=== PATIENT | female | born 1955 | race Caucasian/White ===

== ENCOUNTER 2016-07-04 20:14 | Inpatient (IN) ==
[2016-07-04] MEDS ORDERED: Ondansetron ODT 4 MG TAB.RAPDIS SL ONE (21:21)
--- NOTE | 2016-07-04 21:24 | Emergency Department Note ---
Disposition Clinical Impression: Abdominal pain Qualifiers: Abdominal location: unspecified location Qualified Code(s): R10.9 - Unspecified abdominal pain Nausea & vomiting Qualifiers: Vomiting type: unspecified Vomiting Intractability: unspecified Qualified Code( s): R11.2 - Nausea with vomiting, unspecified Disposition: Still a Patient Condition: Fair Referrals: NO,PCP [Primary Care Provider] - Forms: Work/School Release, ED Satisfaction Letter Abdominal Pain HPI - General Chief Complaint: ED Abdominal Pain Stated Complaint: vomiting/abdominal pain x2 days Time Seen by Provider: 07/04/16 21:17 Source: patient Mode of arrival: ambulatory Limitations: no limitations Nursing Notes Reviewed: Yes Vital Signs Reviewed: Yes - History of Present Illness HPI Narrative: 61-year-old female who's had a three-day history of nausea vomiting some abdominal pain. States nobody else is sick in the family. Denies fever. States she cannot keep anything down. Pt Subjective Complaint: abdominal pain Onset (ago): day(s) Consistency: intermittent Location: diffuse Pain Severity: moderate Pain Scale: 5 Quality: aching Radiation: none Migration to: no migration Improves with: nothing Worsens with: eating - Related Data Allergies Allergy/AdvReac Type Severity Reaction Status Date / Time No Known Allergies Allergy Verified 07/04/16 21:04 All systems ED: reviewed and negative except as stated. Constitutional: Denies: fever, chills, weakness, weight change Eyes: Denies: eye pain, eye discharge, vision change ENT ED: Denies: ear pain, throat pain, dental pain, hearing loss, epistaxis, congestion, dysphagia Cardiovascular: Denies: chest pain, palpitations, dyspnea on exertion, edema, syncope Respiratory: Denies: cough, dyspnea, wheezes, hemoptysis, stridor Gastrointestinal: Reports: abdominal pain, nausea, vomiting. Denies: diarrhea, constipation, hematemesis, melena, hematochezia Genitourinary: Denies: dysuria, frequency, hematuria, discharge Musculoskeletal: Denies: back pain, neck pain, arthralgia, myalgia Integumentary: Denies: rash, abrasion, lesions Neurological: Denies: headache, weakness, numbness, paresthesias, confusion, abnormal gait, vertigo Psychiatric: Denies: anxiety, depression, suicidal thoughts, homicidal thoughts , auditory hallucinations, visual hallucinations Endocrine: Denies: fatigue Hematological/Lymphatic: Denies: easy bleeding, easy bruising Allergic/Immunologic: Denies: facial swelling, urticaria Abdominal Pain PMH - Past Medical History Medical history: Reports: asthma Female Surgical History: Reports: no surgical history Psychiatric history: Reports: no psych history - Social History Smoking status: Never smoker Alcohol use: Reports: none Drug use: Reports: none Physical Exam - General General appearance: alert, in no apparent distress - Head Head exam: atraumatic, normocephalic, normal inspection - Eye Eye exam: Present: normal appearance, PERRL, EOMI - ENT ENT exam: normal exam, normal oropharynx, mucous membranes moist - Neck Neck exam: Present: normal inspection, full ROM, trachea midline - Chest Chest inspection: Present: normal inspection, symmetric chest wall rise - Respiratory Respiratory exam: Present: normal lung sounds bilaterally - Cardiovascular Cardiovascular exam: Present: regular rate, normal rhythm, normal heart sounds - Abdominal Exam Abdominal exam: Present: soft, tenderness. Absent: guarding, rebound Abdominal tenderness: Present: mild - Extremities Exam Extremities exam: Present: normal inspection, full ROM. Absent: tenderness, pedal edema - Expanded Lower Extremity Exam Neurovascular/Tendon exam: Absent: motor deficit, sensory deficit, tendon deficit Gait: observed and normal - Back Exam Back exam: Present: normal inspection, full ROM. Absent: tenderness - Neurological Exam Neurological exam: Present: alert, oriented X3 - Psychiatric Psychiatric exam: Present: normal affect, normal mood - Skin Skin exam: Present: warm, dry, intact, normal color Course Vital Signs Temperature 98.3 F 07/04/16 21:01 Pulse Rate 97 07/04/16 21:01 Respiratory Rate 20 07/04/16 21:01 Blood Pressure 134/81 07/04/16 21:01 O2 Sat by Pulse Oximetry 98 07/04/16 21:01 Temperature 98.3 F 07/04/16 21:01 Pulse Rate 97 07/04/16 21:01 Respiratory Rate 20 07/04/16 21:01 Blood Pressure 134/81 07/04/16 21:01 O2 Sat by Pulse Oximetry 98 07/04/16 21:01 Oxygen Delivery Oxygen Delivery Room Air Abdominal Pain - Lab Data Result diagrams: 07/04/16 21:25 07/04/16 21:25 Lab Results 07/04/16 07/04/16 07/04/16 Range/Units 21:25 21:25 21:25 WBC 7.4 (4.3-11.1) K/mcL RBC 3.95 (3.82-4.97) M/mcL Hgb 12.3 (11.5-15.4) g/dL Hct 37.9 (35.3-44.9) % MCV 95.9 (83.0-100.0) fL MCH 31.1 (28.0-33.3) pg MCHC 32.5 (31.6-35.5) g/dL RDW 15.5 H (11.5-14.5) % Plt Count 315 (140-400) K/mcL MPV 9.7 (9.4-12.4) fL Immature Gran % 0.4 (0-4) % Seg Neutrophils % 76.5 % Lymphocytes % 8.1 % Monocytes % 8.0 % Eosinophils % 6.7 % Basophils % 0.3 % Neutrophils # 5.7 (1.6-8.9) K/mcL Lymphocytes # 0.6 (0.6-4.6) K/mcL Monocytes # 0.6 (0.0-1.3) K/mcL Eosinophils # 0.5 (0.0-0.6) K/mcL Basophils # 0.0 (0.0-0.2) K/mcL Sodium 138 (136-145) mEq/L Potassium 4.6 H (3.5-4.5) mEq/L Chloride 107 (98-109) mEq/L Carbon Dioxide 24 (19-29) mEq/L BUN 15 (7-20) mg/dL Creatinine 0.75 (0.57-1.11) mg/dL Est GFR ( Amer) > 60 (> 60) Est GFR (Non-Af Amer) > 60 (> 60) BUN/Creatinine Ratio 20 (6-26) Glucose 110 H (70-99) mg/dL Calculated Osmolality 287 (280-300) Calcium 9.2 (8.6-10.8) mg/dL Total Bilirubin 0.2 (0.2-1.2) mg/dL Direct Bilirubin 0.1 (0.0-0.5) mg/dL Indirect Bilirubin 0.1 (0.0-1.2) mg/dL AST 31 (5-34) Units/L ALT 57 H (0-55) Units/L Alkaline Phosphatase 72 (38-126) Units/L Troponin I 0.00 (0-0.03) ng/mL Serum Total Protein 7.0 (6.0-8.3) g/dL Albumin 3.7 (3.5-5.0) g/dL Globulin 3.3 (2.4-3.5) g/dL Albumin/Globulin Ratio 1.1 (1.1-2.2) Amylase 43 (25-125) Units/L Lipase 8 (8-78) Units/L - EKG Data EKG attestation: Yes I reviewed and interpreted this EKG. EKG shows normal: sinus rhythm Rate: normal Rhythm: NSR Interpretation: no acute changes S.B.A.R. - S.B.A.R. Recommendation: Recommendation based on pending studies, treatments, or consults S.B.A.R. Report Given to: Ace MCDONOUGH S.B.A.RValerie Repor Time: 23:00
[2016-07-04] MEDS ORDERED: 0.9 % Sodium Chloride 1,000 ML IVC ONE (21:30)
[2016-07-04 21:33] LABS: Basophils % 0.3 %; Eosinophils # 0.5 K/mcL (0.0-0.6); Eosinophils % 6.7 %; Hematocrit 37.9 % (35.3-44.9); Hemoglobin 12.3 g/dL (11.5-15.4); Immature Granulocytes % 0.4 % (0-4); Lymphocytes # 0.6 K/mcL (0.6-4.6); Lymphocytes % 8.1 %; Mean Corpuscular HGB Conc 32.5 g/dL (31.6-35.5); Mean Corpuscular Hemoglobin 31.1 pg (28.0-33.3); Mean Corpuscular Volume 95.9 fL (83.0-100.0); Mean Platelet Volume 9.7 fL (9.4-12.4); Monocytes # 0.6 K/mcL (0.0-1.3); Neutrophils # 5.7 K/mcL (1.6-8.9); Platelet Count 315 K/mcL (140-400); Red Blood Count 3.95 M/mcL (3.82-4.97); Red Cell Distribution Width 15.5 % (11.5-14.5); Segmented Neutrophils % 76.5 %
[2016-07-04 21:47] LABS: Alanine Aminotransferase 57 Units/L (0-55); Albumin 3.7 g/dL (3.5-5.0); Albumin/Globulin Ratio 1.1 (1.1-2.2); Alkaline Phosphatase 72 Units/L (38-126); Amylase 43 Units/L (25-125); Aspartate Amino Transferase 31 Units/L (5-34); BUN/Creatinine Ratio 20 (6-26); Bilirubin,Direct 0.1 mg/dL (0.0-0.5); Bilirubin,Indirect 0.1 mg/dL (0.0-1.2); Bilirubin,Total 0.2 mg/dL (0.2-1.2); Blood Urea Nitrogen 15 mg/dL (7-20); Calcium 9.2 mg/dL (8.6-10.8); Carbon Dioxide 24 mEq/L (19-29); Chloride 107 mEq/L (98-109); Globulin 3.3 g/dL (2.4-3.5); Glucose 110 mg/dL (70-99); Lipase 8 Units/L (8-78); Osmolality,Calculated 287 (280-300); Potassium 4.6 mEq/L (3.5-4.5); Sodium 138 mEq/L (136-145); eGFR For African Americans > 60 (> 60); eGFR For Non-African Americans > 60 (> 60)
[2016-07-05 00:08] LABS: Bilirubin,Urine Negative (Negative); Blood,Urine Negative (Negative); Clarity,Urine Cloudy (Clear); Color,Urine Yellow (Yellow); Glucose,Urine (UA) Normal (Normal); Ketones,Urine Negative (Negative); Leukocyte Esterase,Urine Small (Negative); Nitrite,Urine Negative (Negative); PH,Urine 6.5 pH Units (5.0-8.0); Protein,Urine Negative (Neg-Trace); Specific Gravity,Urine 1.013 (1.010-1.025); Urobilinogen,Urine Normal (Normal)
[2016-07-05 00:10] LABS: Bacteria,Urine None Seen per hpf (None-Few); Hyaline Casts,Urine None Seen per lpf (None-Few); RBC,Urine 0-3 per hpf (0-3); Squamous Epithelial Cell,Urine Many per lpf (None-Few)
[2016-07-05] MEDS ORDERED: *HR* Promethazine 25 MG/ML VIAL IVP ONE (00:53)
[2016-07-05] MEDS ORDERED: *HR* Promethazine 25 MG/ML VIAL IVP PRN (02:16)
[2016-07-05] MEDS ORDERED: Pantoprazole 40 MG VIAL IVP STA (02:16)
[2016-07-05] MEDS ORDERED: Naloxone 0.4 MG/ML INJ IVP PRN (02:16)
[2016-07-05] MEDS ORDERED: Benzonatate 100 MG CAPSULE PO PRN (02:16)
[2016-07-05] MEDS ORDERED: Chloraseptic Spray 177 ML BOTTLE MM PRN (02:16)
[2016-07-05] MEDS ORDERED: *HR* Metoprolol 5 MG/5 ML VIAL IVP PRN (02:16)
--- NOTE | 2016-07-05 02:30 | Internal Med History&Physical ---
Date of Encounter: 07/05/16 Time of Encounter: 02:26 Assessment and Plan (1) Intractable abdominal pain Current visit: Yes Status: Acute . (2) SBO (small bowel obstruction) Current visit: Yes Status: Acute . (3) Nausea & vomiting Current visit: Yes Status: Acute . Qualifiers: Vomiting type: cyclical vomiting Vomiting Intractability: intractable Qualified Code(s): G43.A1 - Cyclical vomiting, intractable (4) Mass of cecum Current visit: Yes Status: Acute . Internal Medicine - H&P: HPI Chief complaint: Abdominal pain. Nausea vomiting. Admitted From: Emergency Dept Plans for Post Hospital Care: Home History of present illness: Ms. Ruiz is a 61 year old female is admitted to [facility] via the emergency department when she presents with a 2-3 day history of intractable abdominal pain with nausea and vomiting. She redeveloped her abdominal pain as a 5-8/10 severity moderate to severe diffuse and intermittent. Nothing seems to mitigate pain when present. Pain is exacerbated with any oral intake. Patient actually can describe gradual decline in weight over the last month or more of greater than 20 pounds in spite of stable oral intake. And increasing problems with her abdomen with episodes of cramping and apparent constipation. No episodes of bleeding reported. Easy fatigability and lack of stamina have also been of concern Radiographic findings demonstrated a distal small bowel obstruction. Associated with this was a 5.1 cm cecal mass like density at the ileocecal valve. This was suspicious for colonic neoplasm such as adenocarcinoma. Appendix was not discretely visualized and an appendicolith with chronic ruptured appendix or appendiceal mass may be considered in the differential. Pericecal adenopathy was noted. The patient cannot recall an episode of fevers chills or sweats or acknowledged history of problems with appendix or diverticulosis. She denies any acknowledged history of family members with colon cancer or tumors. Vital signs were stable at presentation CBC with differential and comprehensive metabolic panel was benign. Troponin was 0.01. Lipase 8. Amylase 43. ALT 57 glucose 110 potassium 4.64 outliers. BUN and creatinine normal at 15 and 0.75. EKG normal sinus rhythm with no acute ischemic changes. Preliminary impression suggests acute distal small bowel obstruction in association with a newly disclosed a mass lesion of the cecum concerning for colonic/cecal adenocarcinoma. Workup and treatments will proceed comprehensively. Consultative opinions will be sought as clinical circumstances justify. General surgery has been consulted. Cumulative laboratory and radiographic database was reviewed and considered and discussed. Given the patient's presenting concerns, past medical history, clinical findings and symptoms, she is admitted at this time to undergo further evaluation and disposition. Orders written. Past Med Surg Social Fam HX - Past Medical History Source: old records reviewed Medical history: asthma, COPD, other Psychiatric history: no psych history - Past Surgical History Surgical History: other - Social History Smoking Status: Never smoker Alcohol use: none Drug use: none Occupational status: unemployed Current living situation: Home, With Family Activity Level: Independent ambulation, Mostly sedentary Recent Out of Country Travel Within the Last 8 Weeks: No Exposure or Possible Exposure to Illness During Travel: No Internal Medicine - H&P: Meds Ipratropium/Albuterol Sulfate [Combivent Respimat Inhal [place]] 1 puff AER PRN PRN 07/05/16 [History] Symbicort 80/4.5 2 aerosol AER BID 07/05/16 [History] Tiotropium [Spiriva] 1 aerosol AER DAILY 07/05/16 [History] Allergies No Known Allergies Allergy (Verified 07/04/16 21:04) All Systems PM: A 10-system review of systems was performed and is negative for pertinent findings except as documented above in the HPI. Patient Problems (Last Updated 07/05/16 @ 02:32 by Jj Sullivan MD) Abdominal pain (Acute Medical) R10.9 Nausea & vomiting (Acute Medical) R11.2 Intractable abdominal pain (Acute Medical) R10.9 Mass of cecum (Acute Medical) K63.9 SBO (small bowel obstruction) (Acute Medical) K56.69 - Constitutional Constitutional: as per HPI, malaise, weakness, weight loss, other, no chills, no fever(s), no night sweats - EENT Eyes: as per HPI, no change in vision, no discharge, no pain, no photophobia Ears: as per HPI, no ear discharge, no ear pain, no tinnitus Nose, mouth and throat: as per HPI, no dysphagia, no nasal discharge, no neck pain, no sore throat - Cardiovascular Cardiovascular ROS IM: as per HPI, no chest pain, no diaphoresis, no dyspnea, no lightheadedness, no palpitations, no syncope - Respiratory Respiratory: no cough, no dyspnea, no wheezing, no excessive phlegm production - Gastrointestinal Gastrointestinal: as per HPI, abdominal pain, bloating, cramping, early satiety , other, no coffee ground emesis, no constipation, no diarrhea, no fecal incontinence, no hematemesis, no hematochezia, no loose stools, no melena, no nausea, no vomiting - Genitourinary Genitourinary: as per HPI, no change in urinary stream, no dysuria, no flank pain, no hematuria - Musculoskeletal Musculoskeletal ROS IM: as per HPI, no numbness, no tingling - Integumentary Integumentary IM: as per HPI, no rash, no unusual bruising - Neurological Neurological ROS: as per HPI, no confusion, no convulsions, no focal weakness, no numbness, no tingling, no tremor(s) - Psychiatric Psychiatric: as per HPI - Endocrine Endocrine IM: as per HPI - Hematologic/Lymphatic Hematologic/Lymphatic: as per HPI, no easy bruising - Allergic/Immunologic Allergic/Immunologic: as per HPI - Constitutional Vitals: Temp Pulse Resp BP Pulse Ox 98.3 F 97 20 134/81 98 07/04/16 21:01 07/04/16 21:01 07/04/16 21:01 07/04/16 21:01 07/04/16 21:01 Vital Signs Temp Pulse Resp BP Pulse Ox 07/04/16 21:01 98.3 F 97 20 134/81 98 Intake and Output 07/04/16 07/04/16 07/05/16 15:59 23:59 07:59 Other: Weight 60.328 kg Vital Signs Temp Pulse Resp BP Pulse Ox 07/05/16 04:18 98.0 F 84 16 100/66 95 07/05/16 03:47 18 138/90 07/04/16 21:01 98.3 F 97 20 134/81 98 Intake and Output 07/04/16 07/04/16 07/05/16 15:59 23:59 07:59 Output Total 0 / 0 Balance 0 / 0 Output: Urine 0 / 0 Other: Weight 60.328 kg 65.18 kg Blood Glucose* 90 Patient Weight 07/05/16 23:59 Weight 65.18 kg General appearance: Present: cooperative, mild distress, A&O X 3, answers questions appropriately - Head Head exam: Present: atraumatic, normocephalic - Eye Eye exam: Present: EOMI, PERRL, conjuntiva pink, sclera anicteric Pupils: Present: normal accommodation, PERRL - ENT ENT exam: Present: mucous membranes moist, normal oropharynx - Neck Neck exam general surgery: Present: supple, trachea midline. Absent: lymphadenopathy - Respiratory Respiratory exam: Present: decreased breath sounds, CTAB. Absent: accessory muscle use, rales, rhonchi, wheezes - Cardiovascular Cardiovascular exam: Present: distant heart sounds, RRR, +S1, +S2. Absent: diastolic murmur, gallop, rubs, systolic murmur - GI/Abdominal GI/Abdominal exam: Present: diminished bowel sounds, soft, tenderness, no peritoneal signs. Absent: distended - Extremities Exam Extremities exam: Present: full ROM, warm, radial pulses palpable and symetrical. Absent: calf tenderness, cyanotic, pedal edema - Neurological Exam Neurological exam: Present: alert, CN II-XII intact, oriented X3, no focal deficits. Absent: pronater drift, facial droop, speech deficit - Psychiatric Psychiatric exam: Present: normal affect, normal mood - Skin Skin exam: Present: dry, intact, pallor, warm Internal Med - H&P Results - Labs CBC & Chem 7: 07/04/16 21:25 07/04/16 21:25 Labs: Short CBC 07/04/16 Range/Units 21:25 WBC 7.4 (4.3-11.1) K/mcL Hgb 12.3 (11.5-15.4) g/dL Hct 37.9 (35.3-44.9) % Plt Count 315 (140-400) K/mcL Neutrophils # 5.7 (1.6-8.9) K/mcL BMP 07/04/16 21:25 Sodium 138 Potassium 4.6 H Chloride 107 Carbon Dioxide 24 BUN 15 Creatinine 0.75 Glucose 110 H Calcium 9.2 Cardiac Enzymes 07/04/16 Range/Units 21:25 Troponin I 0.00 (0-0.03) ng/mL Liver Function 07/04/16 Range/Units 21:25 Total Bilirubin 0.2 (0.2-1.2) mg/dL Direct Bilirubin 0.1 (0.0-0.5) mg/dL AST 31 (5-34) Units/L ALT 57 H (0-55) Units/L Alkaline Phosphatase 72 (38-126) Units/L Albumin 3.7 (3.5-5.0) g/dL Urine 07/04/16 Range/Units 23:57 Urine Color Yellow (Yellow) Urine Clarity Cloudy A (Clear) Urine pH 6.5 (5.0-8.0) pH Units Ur Specific [place] 1.013 (1.010-1.025) Urine Protein Negative (Neg-Trace) mg/dL Urine Glucose (UA) Normal (Normal) mg/dL Abnormal lab results RDW 15.5 % (11.5-14.5) H 07/04/16 21:25 Potassium 4.6 mEq/L (3.5-4.5) H 07/04/16 21:25 Glucose 110 mg/dL (70-99) H 07/04/16 21:25 ALT 57 Units/L (0-55) H 07/04/16 21:25 Urine Clarity Cloudy (Clear) A 07/04/16 23:57 Ur Leukocyte Esterase Small (Negative) H 07/04/16 23:57 Urine Microscopic WBC 5-15 per hpf (0-3) H 07/04/16 23:57 Ur Squamous Epith Cells Many per lpf (None-Few) H 07/04/16 23:57 Ur Culture Indicated? YES (NO) A 07/04/16 23:57 Laboratory Results WBC 7.4 K/mcL (4.3-11.1) 07/04/16 21:25 RBC 3.95 M/mcL (3.82-4.97) 07/04/16 21:25 Hgb 12.3 g/dL (11.5-15.4) 07/04/16 21:25 Hct 37.9 % (35.3-44.9) 07/04/16 21:25 MCV 95.9 fL (83.0-100.0) 07/04/16 21:25 MCH 31.1 pg (28.0-33.3) 07/04/16 21:25 MCHC 32.5 g/dL (31.6-35.5) 07/04/16 21:25 RDW 15.5 % (11.5-14.5) H 07/04/16 21:25 Plt Count 315 K/mcL (140-400) 07/04/16 21:25 MPV 9.7 fL (9.4-12.4) 07/04/16 21:25 Immature Gran % 0.4 % (0-4) 07/04/16 21:25 Seg Neutrophils % 76.5 % 07/04/16 21:25 Lymphocytes % 8.1 % 07/04/16 21:25 Monocytes % 8.0 % 07/04/16 21:25 Eosinophils % 6.7 % 07/04/16: Basophils % 0.3 % 07/04/16 21:25 Neutrophils # 5.7 K/mcL (1.6-8.9) 07/04/16 21:25 Lymphocytes # 0.6 K/mcL (0.6-4.6) 07/04/16: Monocytes # 0.6 K/mcL (0.0-1.3) 07/04/16: Eosinophils # 0.5 K/mcL (0.0-0.6) 07/04/16: Basophils # 0.0 K/mcL (0.0-0.2) 07/04/16 21:25 Sodium 138 mEq/L (136-145) 07/04/16 21:25 Potassium 4.6 mEq/L (3.5-4.5) H 07/04/16 21:25 Chloride 107 mEq/L (98-109) 07/04/16 21:25 Carbon Dioxide 24 mEq/L (19-29) 07/04/16 21:25 BUN 15 mg/dL (7-20) 07/04/16 21:25 Creatinine 0.75 mg/dL (0.57-1.11) 07/04/16 21:25 Est GFR ( Amer) > 60 (> 60) 07/04/16 21:25 Est GFR (Non-Af Amer) > 60 (> 60) 07/04/16 21:25 BUN/Creatinine Ratio 20 (6-26) 07/04/16 21:25 Glucose 110 mg/dL (70-99) H 07/04/16 21:25 Calculated Osmolality 287 (280-300) 07/04/16 21:25 Calcium 9.2 mg/dL (8.6-10.8) 07/04/16 21:25 Total Bilirubin 0.2 mg/dL (0.2-1.2) 07/04/16 21:25 Direct Bilirubin 0.1 mg/dL (0.0-0.5) 07/04/16 21:25 Indirect Bilirubin 0.1 mg/dL (0.0-1.2) 07/04/16 21:25 AST 31 Units/L (5-34) 07/04/16 21:25 ALT 57 Units/L (0-55) H 07/04/16 21:25 Alkaline Phosphatase 72 Units/L (38-126) 07/04/16 21:25 Troponin I 0.00 ng/mL (0-0.03) 07/04/16 21:25 Serum Total Protein 7.0 g/dL (6.0-8.3) 07/04/16 21:25 Albumin 3.7 g/dL (3.5-5.0) 07/04/16 21:25 Globulin 3.3 g/dL (2.4-3.5) 07/04/16 21:25 Albumin/Globulin Ratio 1.1 (1.1-2.2) 07/04/16 21:25 Amylase 43 Units/L (25-125) 07/04/16 21:25 Lipase 8 Units/L (8-78) 07/04/16 21:25 Urine Color Yellow (Yellow) 07/04/16 23:57 Urine Clarity Cloudy (Clear) A 07/04/16 23:57 Urine pH 6.5 pH Units (5.0-8.0) 07/04/16 23:57 Ur Specific [place] 1.013 (1.010-1.025) 07/04/16 23:57 Urine Protein Negative mg/dL (Neg-Trace) 07/04/16 23:57 Urine Glucose (UA) Normal mg/dL (Normal) 07/04/16 23:57 Urine Ketones Negative mg/dL (Negative) 07/04/16 23:57 Urine Blood Negative (Negative) 07/04/16 23:57 Urine Nitrite Negative (Negative) 07/04/16 23:57 Urine Bilirubin Negative (Negative) 07/04/16 23:57 Urine Urobilinogen Normal mg/dL (Normal) 07/04/16 23:57 Ur Leukocyte Esterase Small (Negative) H 07/04/16 23:57 Urine Microscopic RBC 0-3 per hpf (0-3) 07/04/16 23:57 Urine Microscopic WBC 5-15 per hpf (0-3) H 07/04/16 23:57 Ur Squamous Epith Cells Many per lpf (None-Few) H 07/04/16 23:57 Urine Bacteria None Seen per hpf (None-Few) 07/04/16 23:57 Hyaline Casts None Seen per lpf (None-Few) 07/04/16 23:57 Ur Culture Indicated? YES (NO) A 07/04/16 23:57 Impressions Abdomen/Pelvis CT 07/04/16 21:21 IMPRESSION: Distal small bowel obstruction. There is a 5.1 cm cecal mass like density at the ileocecal valve, suspicious for colonic neoplasm, such as adenocarcinoma. There may be an obstructing pill at the ileocecal valve. Alternatively, noting the appendix is not discretely visualized, an appendicolith with chronic ruptured appendix or appendiceal mass is considered, as unlikely in the differential. Pericecal adenopathy. Stable hepatic cysts. D/ / Vic Pizarro MD / Vic Pizarro MD Interpreting Provider: Vic Pizarro MD - Impressions ITS Impressions Abdomen/Pelvis CT 07/04/16 21:21
[2016-07-05] MEDS ORDERED: *HR* LORazepam 2 MG/ML VIAL IVP ONE (02:35)
[2016-07-05] MEDS ORDERED: *HR* Morphine 2 MG/ML SYRINGE IV ONE (02:35)
--- NOTE | 2016-07-05 02:47 | Emergency Department Note ---
Disposition Clinical Impression: Abdominal pain Qualifiers: Abdominal location: unspecified location Qualified Code(s): R10.9 - Unspecified abdominal pain Nausea & vomiting Qualifiers: Vomiting type: cyclical vomiting Vomiting Intractability: intractable Qualified Code(s): G43.A1 - Cyclical vomiting, intractable Disposition: Admitted As Inpatient Condition: Fair Time of Disposition: 02:47 Abdominal Pain HPI - General Chief Complaint: ED Abdominal Pain Stated Complaint: vomiting/abdominal pain x2 days Time Seen by Provider: 07/04/16 21:17 Source: patient Mode of arrival: ambulatory Limitations: no limitations Nursing Notes Reviewed: Yes Vital Signs Reviewed: Yes - History of Present Illness Pt Subjective Complaint: abdominal pain Location: diffuse Pain Severity: moderate Pain Scale: 5 Quality: aching Migration to: no migration Improves with: nothing Worsens with: eating - Related Data Home Medications Medication Instructions Recorded Confirmed Albuterol Neb [Proventil Neb] 2.5 mg IH Q4HR PRN 07/05/16 07/05/16 Budesonide/Formoterol 160/4.5 2 puff IH BIDR 07/05/16 07/05/16 [Symbicort 160/4.5] Cetirizine HCl [Zyrtec] 10 mg PO DAILY 07/05/16 07/05/16 Ipratropium/Albuterol Sulfate 1 puff IH QID PRN 07/05/16 07/05/16 [Combivent Respimat Inhal [place]] Naproxen Sodium [Aleve] 220 mg PO BID PRN 07/05/16 07/05/16 Tiotropium [Spiriva] 1 cap IH DAILY 07/05/16 07/05/16 Allergies Allergy/AdvReac Type Severity Reaction Status Date / Time No Known Allergies Allergy Verified 07/04/16 21:04 Constitutional: Denies: fever, chills, weakness, weight change Eyes: Denies: eye pain, eye discharge, vision change ENT ED: Denies: ear pain, throat pain, dental pain, hearing loss, epistaxis, congestion, dysphagia Cardiovascular: Denies: chest pain, palpitations, dyspnea on exertion, edema, syncope Respiratory: Denies: cough, dyspnea, wheezes, hemoptysis, stridor Gastrointestinal: Reports: abdominal pain, nausea, vomiting. Denies: diarrhea, constipation, hematemesis, melena, hematochezia Genitourinary: Denies: dysuria, frequency, hematuria, discharge Musculoskeletal: Denies: back pain, neck pain, arthralgia, myalgia Integumentary: Denies: rash, abrasion, lesions Neurological: Denies: headache, weakness, numbness, paresthesias, confusion, abnormal gait, vertigo Psychiatric: Denies: anxiety, depression, suicidal thoughts, homicidal thoughts , auditory hallucinations, visual hallucinations Endocrine: Denies: fatigue Hematological/Lymphatic: Denies: easy bleeding, easy bruising Allergic/Immunologic: Denies: facial swelling, urticaria Abdominal Pain PMH - Past Medical History Medical history: Reports: asthma Female Surgical History: Reports: no surgical history Psychiatric history: Reports: no psych history - Social History Smoking status: Never smoker Alcohol use: Reports: none Drug use: Reports: none Physical Exam - General Limitations: no limitations General appearance: alert, in no apparent distress - Head Head exam: atraumatic, normocephalic, normal inspection - Neck Neck exam: Present: normal inspection, full ROM, trachea midline - Chest Chest inspection: Present: normal inspection, symmetric chest wall rise - Respiratory Respiratory exam: Present: normal lung sounds bilaterally. Absent: respiratory distress - Cardiovascular Cardiovascular exam: Present: regular rate, normal rhythm, normal heart sounds - Abdominal Exam Abdominal exam: Present: soft, Non-Tender, normal bowel sounds. Absent: distention, guarding, rebound, rigidity, Nguyen's sign, Rovsing's sign, tenderness at McBurney's Point - Extremities Exam Extremities exam: Present: normal inspection, full ROM. Absent: tenderness, pedal edema - Expanded Lower Extremity Exam Gait: observed and normal - Back Exam Back exam: Present: normal inspection, full ROM. Absent: tenderness - Neurological Exam Neurological exam: Present: alert, oriented X3 - Psychiatric Psychiatric exam: Present: normal affect, normal mood Course - Consultations Consultation #1: I discussed admission to the hospital with Dr. Chau from surgery. I discussed admission with the hospitalist, Dr. Sullivan and he accepts the patient. Patient will be admitted to medicine and surgery will consult. Time: 02:47 Vital Signs Temperature 98.3 F 07/04/16 21:01 Pulse Rate 97 07/04/16 21:01 Respiratory Rate 20 07/04/16 21:01 Blood Pressure 134/81 07/04/16 21:01 O2 Sat by Pulse Oximetry 98 07/04/16 21:01 Temperature 98.6 F 07/06/16 05:45 Pulse Rate 102 07/06/16 05:45 Respiratory Rate 17 07/06/16 05:45 Blood Pressure 115/77 07/06/16 05:45 O2 Sat by Pulse Oximetry 96 07/06/16 05:45 Oxygen Delivery Oxygen Delivery Room Air Abdominal Pain - Lab Data Lab results reviewed: Yes I reviewed the patient's lab results. Result diagrams: 07/06/16 05:04 07/06/16 05:04 Lab Results 07/04/16 07/04/16 07/04/16 Range/Units 21:25 21:25 21:25 WBC 7.4 (4.3-11.1) K/mcL RBC 3.95 (3.82-4.97) M/mcL Hgb 12.3 (11.5-15.4) g/dL Hct 37.9 (35.3-44.9) % MCV 95.9 (83.0-100.0) fL MCH 31.1 (28.0-33.3) pg MCHC 32.5 (31.6-35.5) g/dL RDW 15.5 H (11.5-14.5) % Plt Count 315 (140-400) K/mcL MPV 9.7 (9.4-12.4) fL Immature Gran % 0.4 (0-4) % Seg Neutrophils % 76.5 % Lymphocytes % 8.1 % Monocytes % 8.0 % Eosinophils % 6.7 % Basophils % 0.3 % Neutrophils # 5.7 (1.6-8.9) K/mcL Lymphocytes # 0.6 (0.6-4.6) K/mcL Monocytes # 0.6 (0.0-1.3) K/mcL Eosinophils # 0.5 (0.0-0.6) K/mcL Basophils # 0.0 (0.0-0.2) K/mcL PT (9.4-12.1) Seconds INR APTT (26.0-36.0) Seconds VBG pH (7.32-7.42) pH Units VBG pCO2 (41-51) mmHg VBG pO2 (25-40) mmHg VBG HCO3 (21-27) mEq/L Sodium 138 (136-145) mEq/L Potassium 4.6 H (3.5-4.5) mEq/L Chloride 107 (98-109) mEq/L Carbon Dioxide 24 (19-29) mEq/L BUN 15 (7-20) mg/dL Creatinine 0.75 (0.57-1.11) mg/dL Est GFR ( Amer) > 60 (> 60) Est GFR (Non-Af Amer) > 60 (> 60) BUN/Creatinine Ratio 20 (6-26) Glucose 110 H (70-99) mg/dL POC Glucose (58-89) Est Mean Plasma Glucose mg/dl Hemoglobin A1c ( - 5.6) % Calculated Osmolality 287 (280-300) Lactic Acid (0.5-2.2) mmol/L Calcium 9.2 (8.6-10.8) mg/dL Phosphorus (2.3-4.7) mg/dL Magnesium (1.6-2.6) mg/dL Total Bilirubin 0.2 (0.2-1.2) mg/dL Direct Bilirubin 0.1 (0.0-0.5) mg/dL Indirect Bilirubin 0.1 (0.0-1.2) mg/dL AST 31 (5-34) Units/L ALT 57 H (0-55) Units/L Alkaline Phosphatase 72 (38-126) Units/L Troponin I 0.00 (0-0.03) ng/mL C-Reactive Protein (Less than 5) mg/L Serum Total Protein 7.0 (6.0-8.3) g/dL Albumin 3.7 (3.5-5.0) g/dL Globulin 3.3 (2.4-3.5) g/dL Albumin/Globulin Ratio 1.1 (1.1-2.2) Amylase 43 (25-125) Units/L Lipase 8 (8-78) Units/L Carcinoembryonic Ag (0-5.0) ng/mL TSH (0.350-4.840) mcIU/mL Urine Color (Yellow) Urine Clarity (Clear) Urine pH (5.0-8.0) pH Units Ur Specific [place] (1.010-1.025) Urine Protein (Neg-Trace) mg/dL Urine Glucose (UA) (Normal) mg/dL Urine Ketones (Negative) mg/dL Urine Blood (Negative) Urine Nitrite (Negative) Urine Bilirubin (Negative) Urine Urobilinogen (Normal) mg/dL Ur Leukocyte Esterase (Negative) Urine Microscopic RBC (0-3) per hpf Urine Microscopic WBC (0-3) per hpf Ur Squamous Epith Cells (None-Few) per lpf Urine Bacteria (None-Few) per hpf Hyaline Casts (None-Few) per lpf Ur Culture Indicated? (NO) 07/04/16 07/05/16 07/05/16 Range/Units 23:57 04:06 04:06 WBC (4.3-11.1) K/mcL RBC (3.82-4.97) M/mcL Hgb (11.5-15.4) g/dL Hct (35.3-44.9) % MCV (83.0-100.0) fL MCH (28.0-33.3) pg MCHC (31.6-35.5) g/dL RDW (11.5-14.5) % Plt Count (140-400) K/mcL MPV (9.4-12.4) fL Immature Gran % (0-4) % Seg Neutrophils % % Lymphocytes % % Monocytes % % Eosinophils % % Basophils % % Neutrophils # (1.6-8.9) K/mcL Lymphocytes # (0.6-4.6) K/mcL Monocytes # (0.0-1.3) K/mcL Eosinophils # (0.0-0.6) K/mcL Basophils # (0.0-0.2) K/mcL PT 11.3 (9.4-12.1) Seconds INR 1.0 APTT 25.8 L (26.0-36.0) Seconds VBG pH (7.32-7.42) pH Units VBG pCO2 (41-51) mmHg VBG pO2 (25-40) mmHg VBG HCO3 (21-27) mEq/L Sodium (136-145) mEq/L Potassium (3.5-4.5) mEq/L Chloride (98-109) mEq/L Carbon Dioxide (19-29) mEq/L BUN (7-20) mg/dL Creatinine (0.57-1.11) mg/dL Est GFR ( Amer) (> 60) Est GFR (Non-Af Amer) (> 60) BUN/Creatinine Ratio (6-26) Glucose (70-99) mg/dL POC Glucose (58-89) Est Mean Plasma Glucose mg/dl Hemoglobin A1c ( - 5.6) % Calculated Osmolality (280-300) Lactic Acid 0.6 (0.5-2.2) mmol/L Calcium (8.6-10.8) mg/dL Phosphorus (2.3-4.7) mg/dL Magnesium (1.6-2.6) mg/dL Total Bilirubin (0.2-1.2) mg/dL Direct Bilirubin (0.0-0.5) mg/dL Indirect Bilirubin (0.0-1.2) mg/dL AST (5-34) Units/L ALT (0-55) Units/L Alkaline Phosphatase (38-126) Units/L Troponin I (0-0.03) ng/mL C-Reactive Protein (Less than 5) mg/L Serum Total Protein (6.0-8.3) g/dL Albumin (3.5-5.0) g/dL Globulin (2.4-3.5) g/dL Albumin/Globulin Ratio (1.1-2.2) Amylase (25-125) Units/L Lipase (8-78) Units/L Carcinoembryonic Ag (0-5.0) ng/mL TSH (0.350-4.840) mcIU/mL Urine Color Yellow (Yellow) Urine Clarity Cloudy A (Clear) Urine pH 6.5 (5.0-8.0) pH Units Ur Specific [place] 1.013 (1.010-1.025) Urine Protein Negative (Neg-Trace) mg/dL Urine Glucose (UA) Normal (Normal) mg/dL Urine Ketones Negative (Negative) mg/dL Urine Blood Negative (Negative) Urine Nitrite Negative (Negative) Urine Bilirubin Negative (Negative) Urine Urobilinogen Normal (Normal) mg/dL Ur Leukocyte Esterase Small H (Negative) Urine Microscopic RBC 0-3 (0-3) per hpf Urine Microscopic WBC 5-15 H (0-3) per hpf Ur Squamous Epith Cells Many H (None-Few) per lpf Urine Bacteria None Seen (None-Few) per hpf Hyaline Casts None Seen (None-Few) per lpf Ur Culture Indicated? YES A (NO) 04/13/17 04/13/17 04/13/17 Range/Units 04:06 04:06 04:06 WBC (4.3-11.1) K/mcL RBC (3.82-4.97) M/mcL Hgb (11.5-15.4) g/dL Hct (35.3-44.9) % MCV (83.0-100.0) fL MCH (28.0-33.3) pg MCHC (31.6-35.5) g/dL RDW (11.5-14.5) % Plt Count (140-400) K/mcL MPV (9.4-12.4) fL Immature Gran % (0-4) % Seg Neutrophils % % Lymphocytes % % Monocytes % % Eosinophils % % Basophils % % Neutrophils # (1.6-8.9) K/mcL Lymphocytes # (0.6-4.6) K/mcL Monocytes # (0.0-1.3) K/mcL Eosinophils # (0.0-0.6) K/mcL Basophils # (0.0-0.2) K/mcL PT (9.4-12.1) Seconds INR APTT (26.0-36.0) Seconds VBG pH (7.32-7.42) pH Units VBG pCO2 (41-51) mmHg VBG pO2 (25-40) mmHg VBG HCO3 (21-27) mEq/L Sodium (136-145) mEq/L Potassium (3.5-4.5) mEq/L Chloride (98-109) mEq/L Carbon Dioxide (19-29) mEq/L BUN (7-20) mg/dL Creatinine (0.57-1.11) mg/dL Est GFR ( Amer) (> 60) Est GFR (Non-Af Amer) (> 60) BUN/Creatinine Ratio (6-26) Glucose (70-99) mg/dL POC Glucose (58-89) Est Mean Plasma Glucose 105 mg/dl Hemoglobin A1c 5.3 ( - 5.6) % Calculated Osmolality (280-300) Lactic Acid (0.5-2.2) mmol/L Calcium (8.6-10.8) mg/dL Phosphorus (2.3-4.7) mg/dL Magnesium (1.6-2.6) mg/dL Total Bilirubin (0.2-1.2) mg/dL Direct Bilirubin (0.0-0.5) mg/dL Indirect Bilirubin (0.0-1.2) mg/dL AST (5-34) Units/L ALT (0-55) Units/L Alkaline Phosphatase (38-126) Units/L Troponin I 0.00 (0-0.03) ng/mL C-Reactive Protein (Less than 5) mg/L Serum Total Protein (6.0-8.3) g/dL Albumin (3.5-5.0) g/dL Globulin (2.4-3.5) g/dL Albumin/Globulin Ratio (1.1-2.2) Amylase 35 (25-125) Units/L Lipase 7 L (8-78) Units/L Carcinoembryonic Ag (0-5.0) ng/mL TSH (0.350-4.840) mcIU/mL Urine Color (Yellow) Urine Clarity (Clear) Urine pH (5.0-8.0) pH Units Ur Specific [place] (1.010-1.025) Urine Protein (Neg-Trace) mg/dL Urine Glucose (UA) (Normal) mg/dL Urine Ketones (Negative) mg/dL Urine Blood (Negative) Urine Nitrite (Negative) Urine Bilirubin (Negative) Urine Urobilinogen (Normal) mg/dL Ur Leukocyte Esterase (Negative) Urine Microscopic RBC (0-3) per hpf Urine Microscopic WBC (0-3) per hpf Ur Squamous Epith Cells (None-Few) per lpf Urine Bacteria (None-Few) per hpf Hyaline Casts (None-Few) per lpf Ur Culture Indicated? (NO) 07/05/16 07/05/16 07/05/16 Range/Units 04:06 04:06 05:47 WBC (4.3-11.1) K/mcL RBC (3.82-4.97) M/mcL Hgb (11.5-15.4) g/dL Hct (35.3-44.9) % MCV (83.0-100.0) fL MCH (28.0-33.3) pg MCHC (31.6-35.5) g/dL RDW (11.5-14.5) % Plt Count (140-400) K/mcL MPV (9.4-12.4) fL Immature Gran % (0-4) % Seg Neutrophils % % Lymphocytes % % Monocytes % % Eosinophils % % Basophils % % Neutrophils # (1.6-8.9) K/mcL Lymphocytes # (0.6-4.6) K/mcL Monocytes # (0.0-1.3) K/mcL Eosinophils # (0.0-0.6) K/mcL Basophils # (0.0-0.2) K/mcL PT (9.4-12.1) Seconds INR APTT (26.0-36.0) Seconds VBG pH 7.34 (7.32-7.42) pH Units VBG pCO2 48 (41-51) mmHg VBG pO2 54 H (25-40) mmHg VBG HCO3 25.9 (21-27) mEq/L Sodium (136-145) mEq/L Potassium (3.5-4.5) mEq/L Chloride (98-109) mEq/L Carbon Dioxide (19-29) mEq/L BUN (7-20) mg/dL Creatinine (0.57-1.11) mg/dL Est GFR ( Amer) (> 60) Est GFR (Non-Af Amer) (> 60) BUN/Creatinine Ratio (6-26) Glucose (70-99) mg/dL POC Glucose 90 H (58-89) Est Mean Plasma Glucose mg/dl Hemoglobin A1c ( - 5.6) % Calculated Osmolality (280-300) Lactic Acid (0.5-2.2) mmol/L Calcium (8.6-10.8) mg/dL Phosphorus 3.3 (2.3-4.7) mg/dL Magnesium 2.1 (1.6-2.6) mg/dL Total Bilirubin (0.2-1.2) mg/dL Direct Bilirubin (0.0-0.5) mg/dL Indirect Bilirubin (0.0-1.2) mg/dL AST (5-34) Units/L ALT (0-55) Units/L Alkaline Phosphatase (38-126) Units/L Troponin I (0-0.03) ng/mL C-Reactive Protein 39 H (Less than 5) mg/L Serum Total Protein (6.0-8.3) g/dL Albumin (3.5-5.0) g/dL Globulin (2.4-3.5) g/dL Albumin/Globulin Ratio (1.1-2.2) Amylase (25-125) Units/L Lipase (8-78) Units/L Carcinoembryonic Ag 11.1 H (0-5.0) ng/mL TSH 1.997 (0.350-4.840) mcIU/mL Urine Color (Yellow) Urine Clarity (Clear) Urine pH (5.0-8.0) pH Units Ur Specific [place] (1.010-1.025) Urine Protein (Neg-Trace) mg/dL Urine Glucose (UA) (Normal) mg/dL Urine Ketones (Negative) mg/dL Urine Blood (Negative) Urine Nitrite (Negative) Urine Bilirubin (Negative) Urine Urobilinogen (Normal) mg/dL Ur Leukocyte Esterase (Negative) Urine Microscopic RBC (0-3) per hpf Urine Microscopic WBC (0-3) per hpf Ur Squamous Epith Cells (None-Few) per lpf Urine Bacteria (None-Few) per hpf Hyaline Casts (None-Few) per lpf Ur Culture Indicated? (NO) 07/05/16 Range/Units 08:00 WBC (4.3-11.1) K/mcL RBC (3.82-4.97) M/mcL Hgb (11.5-15.4) g/dL Hct (35.3-44.9) % MCV (83.0-100.0) fL MCH (28.0-33.3) pg MCHC (31.6-35.5) g/dL RDW (11.5-14.5) % Plt Count (140-400) K/mcL MPV (9.4-12.4) fL Immature Gran % (0-4) % Seg Neutrophils % % Lymphocytes % % Monocytes % % Eosinophils % % Basophils % % Neutrophils # (1.6-8.9) K/mcL Lymphocytes # (0.6-4.6) K/mcL Monocytes # (0.0-1.3) K/mcL Eosinophils # (0.0-0.6) K/mcL Basophils # (0.0-0.2) K/mcL PT (9.4-12.1) Seconds INR APTT (26.0-36.0) Seconds VBG pH (7.32-7.42) pH Units VBG pCO2 (41-51) mmHg VBG pO2 (25-40) mmHg VBG HCO3 (21-27) mEq/L Sodium (136-145) mEq/L Potassium (3.5-4.5) mEq/L Chloride (98-109) mEq/L Carbon Dioxide (19-29) mEq/L BUN (7-20) mg/dL Creatinine (0.57-1.11) mg/dL Est GFR ( Amer) (> 60) Est GFR (Non-Af Amer) (> 60) BUN/Creatinine Ratio (6-26) Glucose (70-99) mg/dL POC Glucose (58-89) Est Mean Plasma Glucose mg/dl Hemoglobin A1c ( - 5.6) % Calculated Osmolality (280-300) Lactic Acid 0.5 (0.5-2.2) mmol/L Calcium (8.6-10.8) mg/dL Phosphorus (2.3-4.7) mg/dL Magnesium (1.6-2.6) mg/dL Total Bilirubin (0.2-1.2) mg/dL Direct Bilirubin (0.0-0.5) mg/dL Indirect Bilirubin (0.0-1.2) mg/dL AST (5-34) Units/L ALT (0-55) Units/L Alkaline Phosphatase (38-126) Units/L Troponin I (0-0.03) ng/mL C-Reactive Protein (Less than 5) mg/L Serum Total Protein (6.0-8.3) g/dL Albumin (3.5-5.0) g/dL Globulin (2.4-3.5) g/dL Albumin/Globulin Ratio (1.1-2.2) Amylase (25-125) Units/L Lipase (8-78) Units/L Carcinoembryonic Ag (0-5.0) ng/mL TSH (0.350-4.840) mcIU/mL Urine Color (Yellow) Urine Clarity (Clear) Urine pH (5.0-8.0) pH Units Ur Specific [place] (1.010-1.025) Urine Protein (Neg-Trace) mg/dL Urine Glucose (UA) (Normal) mg/dL Urine Ketones (Negative) mg/dL Urine Blood (Negative) Urine Nitrite (Negative) Urine Bilirubin (Negative) Urine Urobilinogen (Normal) mg/dL Ur Leukocyte Esterase (Negative) Urine Microscopic RBC (0-3) per hpf Urine Microscopic WBC (0-3) per hpf Ur Squamous Epith Cells (None-Few) per lpf Urine Bacteria (None-Few) per hpf Hyaline Casts (None-Few) per lpf Ur Culture Indicated? (NO) - Radiology Data Radiology results reviewed: Yes I reviewed the patient's radiology results.
[2016-07-05 04:29] LABS: VBG HCO3 25.9 mEq/L (21-27); VBG PH 7.34 pH Units (7.32-7.42)
[2016-07-05] MEDS: *HR* Enoxaparin 40 MG/0.4 ML SYRINGE SQ SCH (04:39)
[2016-07-05 04:40] LABS: Prothrombin Time 11.3 Seconds (9.4-12.1)
[2016-07-05 04:43] LABS: Activated Partial Thrombo Time 25.8 Seconds (26.0-36.0)
[2016-07-05 04:45] LABS: Amylase 35 Units/L (25-125); Lipase 7 Units/L (8-78)
[2016-07-05 04:47] LABS: Magnesium 2.1 mg/dL (1.6-2.6); Phosphorous 3.3 mg/dL (2.3-4.7)
[2016-07-05 05:10] LABS: Thyroid Stimulating Hormone 1.997 mcIU/mL (0.350-4.840)
[2016-07-05 05:37] LABS: Hemoglobin A1C 5.3 %
[2016-07-05 07:45] LABS: Carcinoembryonic Antigen 11.1 ng/mL (0-5.0)
[2016-07-05] MEDS: Ipratropium/Albuterol Neb 3 ML IH PRN ×2 (09:53→19:45)
[2016-07-05] MEDS: Pantoprazole 40 MG VIAL IVP SCH (11:23)
--- NOTE | 2016-07-05 12:20 | Electrocardiograph Report ---
[place] [id number] Test Date: 2016-07-04 Pat Name: Cynthia Ruiz Department: [id number] Room: 3A Gender: F Environmental Science Technician: PAULINO : 1955 Requested By: Ham Garcia Order Number: [id number] Reading MD: Dariel Louis MD Measurements Intervals [place] Rate: 95 P: 78 HI: 146 QRS: 79 QRSD: 93 T: 63 QT: 348 QTc: 400 Interpretive Statements SINUS RHYTHM Electronically Signed On 07-05-2016 12:19:40 EDT by Dariel Louis MD
--- NOTE | 2016-07-05 15:16 | General Surgery Consult Note ---
Date of Encounter: 07/05/16 Time of Encounter: 15:00 Assessment and Plan (1) Mass of cecum Current Visit: Yes Status: Acute NPO NG tube to LIWS IV fluids Discussed the risks, benefits, alternatives and expected outcomes of a robotic assisted right hemicolectomy with the patient and her . They are in agreement to proceed in the next 24-48 hours. Pre-op antibiotics Unable to complete bowel prep due to bowel obstruction Check CEA level Supportive care/pain control (2) DVT prophylaxis Current Visit: Yes Status: Acute Continue lovenox for DVT prophylaxis History of Present Illness Consult date: 07/05/16 Reason for consult: other (Cecal mass, bowel obstruction) Requesting physician: Misti Camargo History of present illness: Mrs. Ruiz is a very pleasant 61 year old female who presented to the emergency department with a 2 to three-day history of worsening abdominal pain with associated nausea and vomiting. The patient states that her abdominal pain is diffuse. She does describes it as an intermittent cramping pain. She reports multiple episodes of nausea and vomiting. She states her symptoms are aggravated by oral intake. She has never had symptoms like this in the past. She does report less than a 10 pound weight loss over the last 1 year. She states that she typically has a bowel movement every 3-4 days and that this is typical. She states that she has struggled with chronic constipation for some time. She denies any rectal bleeding. Denies any fevers or chills. Denies any shortness of breath or chest pain. Denies any difficulty with urination. She states she has never had a colonoscopy evaluation the past. She has had a CAT scan evaluation which shows evidence of a cecal mass which is causing a bowel obstruction. We have been asked to see and evaluate the patient for recommendations. Past Med Surg Social Fam HX - Past Medical History Source: patient, old records reviewed Medical history: asthma, COPD, other Psychiatric history: no psych history - Past Surgical History Surgical History: other (wisdom teeth extraction) - Social History Smoking Status: Never smoker Smokeless Tobacco Status: No Alcohol use: none Drug use: none Current living situation: Home - Independent Activity Level: Independent ambulation Medications and Allergies Albuterol Neb [Proventil Neb] 2.5 mg IH Q4HR PRN 07/05/16 [History] Budesonide/Formoterol 160/4.5 [Symbicort 160/4.5] 2 puff IH BIDR 07/05/16 [ History] Cetirizine HCl [Zyrtec] 10 mg PO DAILY 07/05/16 [History] Ipratropium/Albuterol Sulfate [Combivent Respimat Inhal [place]] 1 puff IH QID PRN 07/05/16 [History] Naproxen Sodium [Aleve] 220 mg PO BID PRN 07/05/16 [History] Tiotropium [Spiriva] 1 cap IH DAILY 07/05/16 [History] Allergies No Known Allergies Allergy (Verified 07/04/16 21:04) Review of Systems All systems PM: reviewed and no additional remarkable complaints except as stated (in the HPI) All systems PM: A 10-system review of systems was performed and is negative for pertinent findings except as documented above in the HPI. General Surgery Exam Initial Vital Signs Temp Pulse Resp BP Pulse Ox 98.3 F 97 20 134/81 98 07/04/16 21:01 07/04/16 21:01 07/04/16 21:01 07/04/16 21:01 07/04/16 21:01 - General physical appearance well developed, well nourished, no distress - Eyes normal ocular movement - ENT normal mucosa, atraumatic, normocephalic - Neck trachea midline - Respiratory normal respiratory effort, clear to auscultation - Cardiovascular Cardiovascular exam: Present: RRR, 15, 16 - Abdomen Abdomen general surgery: Present: bowel sounds present, soft, distended, wound ( NG tube to LIWS) - Integumentary Integumentary general surgery: Present: warm and dry - Neurologic Present: CN 2-12 grossly intact - Musculoskeletal Present: normal gait, normal posture - Psychiatric Psychiatric general surgery: Present: appropriate, oriented to person, oriented to place, oriented to time, speech is normal, memory intact Exam Initial Vital Signs Temp Pulse Resp BP Pulse Ox 98.3 F 97 20 134/81 98 07/04/16 21:01 07/04/16 21:01 07/04/16 21:01 07/04/16 21:01 07/04/16 21:01 Results - Labs 07/04/16 21:25 07/04/16 21:25 Abnormal lab results RDW 15.5 % (11.5-14.5) H 07/04/16 21:25 APTT 25.8 Seconds (26.0-36.0) L 07/05/16 04:06 VBG pO2 54 mmHg (25-40) H 07/05/16 04:06 Potassium 4.6 mEq/L (3.5-4.5) H 07/04/16 21:25 Glucose 110 mg/dL (70-99) H 07/04/16 21:25 ALT 57 Units/L (0-55) H 07/04/16 21:25 C-Reactive Protein 39 mg/L (Less than 5) H 07/05/16 04:06 Lipase 7 Units/L (8-78) L 07/05/16 04:06 Carcinoembryonic Ag 11.1 ng/mL (0-5.0) H 07/05/16 04:06 Urine Clarity Cloudy (Clear) A 07/04/16 23:57 Ur Leukocyte Esterase Small (Negative) H 07/04/16 23:57 Urine Microscopic WBC 5-15 per hpf (0-3) H 07/04/16 23:57 Ur Squamous Epith Cells Many per lpf (None-Few) H 07/04/16 23:57 Ur Culture Indicated? YES (NO) A 07/04/16 23:57 All other labs normal. - Imaging CT scan - abdomen: report reviewed CT scan - pelvis: report reviewed Additional studies: Abdomen/Pelvis CT 07/04/16 21:21 IMPRESSION: Distal small bowel obstruction. There is a 5.1 cm cecal mass like density at the ileocecal valve, suspicious for colonic neoplasm, such as adenocarcinoma. There may be an obstructing pill at the ileocecal valve. Alternatively, noting the appendix is not discretely visualized, an appendicolith with chronic ruptured appendix or appendiceal mass is considered, as unlikely in the differential. Pericecal adenopathy. Stable hepatic cysts. D/ / iVc Pizarro MD / Vic Pizarro MD Interpreting Provider: Vic Pizarro MD Chest X-Ray 07/05/16 02:33 IMPRESSION: Orogastric tube is normal course. No acute cardiopulmonary disease is identified. D/ / Vic Pizarro MD / Vic Pizarro MD Interpreting Provider: Vic Pizarro MD Consult Discharge Plan - Plan Referrals: Ruth Kc MD [Primary Care Provider] - - Attending Attestation I examined this patient and my medical decision-making was reviewed with the INTERNAL CONTROLS CONSULTANT/PA/Advanced Practice Nurse/Resident Physician. I agree with the documented findings, disposition and treatment plan as described except to the extent set forth below.
--- NOTE | 2016-07-05 19:17 | Anesthesia Evaluation PreOp ---
Date of Encounter: 07/05/16 Time of Encounter: 19:15 - Past History Planned Operation: robot/lap right hemicolectomy Cardiac History: Denies any Significant Hx Pulmonary History: Asthma, COPD Other Medical History: Other (cecal mass) Anesthesia History: Past Anesthesia (denies fh anesthetic complications) Alcohol Use: none Drug use: none Medications and Allergies Albuterol Neb [Proventil Neb] 2.5 mg IH Q4HR PRN 07/05/16 [History] Budesonide/Formoterol 160/4.5 [Symbicort 160/4.5] 2 puff IH BIDR 07/05/16 [ History] Cetirizine HCl [Zyrtec] 10 mg PO DAILY 07/05/16 [History] Ipratropium/Albuterol Sulfate [Combivent Respimat Inhal [place]] 1 puff IH QID PRN 07/05/16 [History] Naproxen Sodium [Aleve] 220 mg PO BID PRN 07/05/16 [History] Tiotropium [Spiriva] 1 cap IH DAILY 07/05/16 [History] Allergies No Known Allergies Allergy (Verified 07/04/16 21:04) - Meds/Allergy Pre-op Review Medications Reviewed: Yes Allergies Reviewed: Yes Beta Blockers on Current Med List: No Anesthesia Results - Labs 07/04/16 21:25 07/04/16 21:25 - Imaging EKG: report reviewed (sr) Anesthesia Exam Height: 1.63 Weight: 65 NPO (# of Hours): >8 - HEENT Pupil (Motor): Pupils equal, EOMI Mallampati: II Teeth: Poor dentition (NGT in place) Oral Opening: Greater than 3 - PICTURE COPYIST LOC: Oriented PICTURE COPYIST Motor: Normal RUE, Normal LUE, Normal RLE, Normal LLE, Normal Face PICTURE COPYIST Sensory: Normal: RUE, LUE, RLE, LLE, Face - Cardiac Rhythm: Regular Murmur: None - Pulmonary Breath Sounds: bilateral Clear Respiratory Effort: Symmetrical Anesthesia Assess/Plan ASA Score: 2 Modified Delon Scale for Level of Consciousness: Cooperative, oriented, and tranquil Anesthetic Plan: General Monitoring Plan: Standard Monitors Recovery Plan: PACU
[2016-07-05] MEDS: D5% in 0.45% NACL 1,000 ML IVC SCH (19:36)
[2016-07-06] MEDS: *HR* HYDROmorphone (PF) 1 MG/ML SYRINGE IVP PRN ×3 (00:29→22:01)
[2016-07-06] MEDS: *HR* Enoxaparin 40 MG/0.4 ML SYRINGE SQ SCH (05:15)
[2016-07-06 05:48] LABS: Basophils % 0.4 %; Eosinophils # 0.4 K/mcL (0.0-0.6); Eosinophils % 6.8 %; Hemoglobin 12.3 g/dL (11.5-15.4); Immature Granulocytes % 0.4 % (0-4); Lymphocytes # 1.2 K/mcL (0.6-4.6); Mean Corpuscular HGB Conc 33.2 g/dL (31.6-35.5); Mean Corpuscular Hemoglobin 31.9 pg (28.0-33.3); Mean Corpuscular Volume 95.9 fL (83.0-100.0); Mean Platelet Volume 10.1 fL (9.4-12.4); Monocytes # 0.8 K/mcL (0.0-1.3); Monocytes % 13.9 %; Neutrophils # 3.1 K/mcL (1.6-8.9); Platelet Count 281 K/mcL (140-400); Red Blood Count 3.86 M/mcL (3.82-4.97); Red Cell Distribution Width 15.5 % (11.5-14.5); Segmented Neutrophils % 56.5 %
[2016-07-06 06:04] LABS: BUN/Creatinine Ratio 18 (6-26); Blood Urea Nitrogen 12 mg/dL (7-20); Calcium 9.3 mg/dL (8.6-10.8); Carbon Dioxide 26 mEq/L (19-29); Chloride 108 mEq/L (98-109); Glucose 93 mg/dL (70-99); Osmolality,Calculated 289 (280-300); Phosphorous 3.3 mg/dL (2.3-4.7); Potassium 3.6 mEq/L (3.5-4.5); Sodium 140 mEq/L (136-145); eGFR For African Americans > 60 (> 60); eGFR For Non-African Americans > 60 (> 60)
[2016-07-06] MEDS: D5% in 0.45% NACL 1,000 ML IVC SCH (08:45)
[2016-07-06] MEDS: Pantoprazole 40 MG VIAL IVP SCH (08:45)
[2016-07-06] MEDS: Ipratropium/Albuterol Neb 3 ML IH PRN (09:31)
[2016-07-06] MEDS ORDERED: *HR* FentaNYL (PF) 100 MCG/2 ML VIAL ONE (12:28)
[2016-07-06] MEDS ORDERED: Lidocaine -MPF 2% 2 ML VIAL ONE (12:28)
[2016-07-06] MEDS ORDERED: Ondansetron 4 MG/2 ML VIAL ONE (12:28)
[2016-07-06] MEDS ORDERED: *HR* Rocuronium Bromide 50 MG/5 ML VIAL ONE ×2 (12:28→13:17)
[2016-07-06] MEDS ORDERED: *HR* Propofol 200 MG/20 ML VIAL IVP ONE (12:28)
[2016-07-06] MEDS ORDERED: CefOXitin 2,000 MG VIAL IVPB ONE (14:16)
[2016-07-06] MEDS ORDERED: Ketorolac 30 MG/ML VIAL ONE (14:34)
[2016-07-06] MEDS ORDERED: Dexamethasone 4 MG/ML VIAL ONE (14:34)
[2016-07-06] MEDS ORDERED: Neostigmine Methylsulfate 3 MG/3 ML SYRINGE ONE (16:04)
[2016-07-06] MEDS ORDERED: *HR* HYDROmorphone 2 MG/ML SYRINGE ONE (16:11)
--- NOTE | 2016-07-06 16:17 | Internal Med Progress Note ---
Date of Encounter: 07/06/16 Time of Encounter: 12:00 - Assessment and plan (1) SBO (small bowel obstruction) Current Visit: Yes Status: Acute Assessment and plan: Patient reports 2-3 day history of worsening abdominal pain with associated nausea and vomiting. CT of the abdomen and pelvis revealed the study small bowel obstruction. There is a 5.1 cm cecal mass like density at the ileocecal valve, suspicious for colonic neoplasm. Appreciate surgery input. Supportive management with IV fluids, NPO, NG to LIWS and pain medications. Patient received IV Dilaudid this morning. Plan for robotic assisted right hemicolectomy today. (2) Mass of cecum Current Visit: Yes Status: Acute Assessment and plan: Plan as above. (3) COPD (chronic obstructive pulmonary disease) Current Visit: Yes Status: Chronic Assessment and plan: stable. nebs prn Qualifiers: COPD type: chronic bronchitis Chronic bronchitis type: simple Qualified Code(s): J41.0 - Simple chronic bronchitis - Subjective Interval history: Patient with NG tube. Her abdominal pain is well controlled with pain medications. - Constitutional Vitals: Temp Pulse Resp BP Pulse Ox 98.5 F 98 16 111/72 92 07/06/16 10:53 07/06/16 10:53 07/06/16 10:53 07/06/16 10:53 07/06/16 10:53 General appearance: Present: cooperative, A&O X 3, no acute distress, answers questions appropriately - Eye Eye exam: Present: scleral icterus, sclera anicteric - Neck Additional comments: NG tube in place, LIWS - Respiratory Respiratory exam: Present: CTAB - Cardiovascular Cardiovascular exam: Present: RRR - GI/Abdominal GI/Abdominal exam: Present: distended, soft, tenderness (Mild lower abdominal tenderness.) Additional comments: Tympanic sounds. - Extremities Exam Extremities exam: Absent: pedal edema - Back Exam Back exam: Absent: CVA tenderness (L), CVA tenderness (R) - Neurological Exam Neurological exam: Present: alert, oriented X3, no focal deficits, strengths equal and symetr throughout. Absent: facial droop, speech deficit - Skin Skin exam: Absent: rash Internal Medicine: Result - Labs CBC & Chem 7: 07/06/16 05:04 07/06/16 05:04 Labs: Short CBC 07/06/16 Range/Units 05:04 WBC 5.5 (4.3-11.1) K/mcL Hgb 12.3 (11.5-15.4) g/dL Hct 37.0 (35.3-44.9) % Plt Count 281 (140-400) K/mcL Neutrophils # 3.1 (1.6-8.9) K/mcL BMP 07/06/16 05:04 Sodium 140 Potassium 3.6 D Chloride 108 Carbon Dioxide 26 BUN 12 Creatinine 0.68 Glucose 93 Calcium 9.3 - ABG Interpretation ABG results: PT/INR, D-dimer PT 11.3 Seconds (9.4-12.1) 07/05/16 04:06 Consult Discharge Plan - Plan Referrals: Ruth Kc MD [Primary Care Provider] -
--- NOTE | 2016-07-06 17:10 | Anesthesia Evaluation Post Op ---
Date of Encounter: 07/06/16 Time of Encounter: 17:09 - Vital Signs Vital Signs: Vital Signs/O2 Sat, Most Current Temp Pulse Resp BP Pulse Ox 99.1 F 85 16 112/77 96 07/06/16 16:48 07/06/16 16:58 07/06/16 16:58 07/06/16 16:58 07/06/16 16:58 - Lungs Lungs: Clear Ascult./Percussion - Airway Airway: Non-obstructed - Cardiovascular Regular Rate - Mental Status Mental Status: Alert & Oriented, Answers Appropriately - Pain Pain Scale: 4 Pain Scale used: Numeric (1 - 10) - Nausea Vomiting Nausea Vomiting: Not Present - Hydration Hydration: NPO, Has not voided - Discharge PostOp Status: Transfer Patient to floor
[2016-07-07] MEDS: *HR* HYDROmorphone (PF) 1 MG/ML SYRINGE IVP PRN ×7 (01:09→21:16)
[2016-07-07] MEDS: Ipratropium/Albuterol Neb 3 ML IH PRN (01:29)
[2016-07-07] MEDS: D5% in 0.45% NACL 1,000 ML IVC SCH ×3 (02:58→22:20)
[2016-07-07 04:34] LABS: Basophils % 0.1 %; Eosinophils % 0.2 %; Hematocrit 32.9 % (35.3-44.9); Immature Granulocytes % 0.4 % (0-4); Lymphocytes # 1.2 K/mcL (0.6-4.6); Lymphocytes % 12.3 %; Mean Corpuscular HGB Conc 32.5 g/dL (31.6-35.5); Mean Corpuscular Hemoglobin 30.7 pg (28.0-33.3); Mean Corpuscular Volume 94.5 fL (83.0-100.0); Mean Platelet Volume 9.7 fL (9.4-12.4); Monocytes # 0.8 K/mcL (0.0-1.3); Monocytes % 8.5 %; Neutrophils # 7.6 K/mcL (1.6-8.9); Platelet Count 273 K/mcL (140-400); Red Blood Count 3.48 M/mcL (3.82-4.97); Red Cell Distribution Width 15.1 % (11.5-14.5); Segmented Neutrophils % 78.5 %
[2016-07-07 04:47] LABS: Hemoglobin 10.7 g/dL (11.5-15.4)
[2016-07-07 05:05] LABS: BUN/Creatinine Ratio 16 (6-26); Blood Urea Nitrogen 10 mg/dL (7-20); Calcium 8.9 mg/dL (8.6-10.8); Carbon Dioxide 26 mEq/L (19-29); Chloride 108 mEq/L (98-109); Glucose 127 mg/dL (70-99); Magnesium 1.5 mg/dL (1.6-2.6); Osmolality,Calculated 289 (280-300); Phosphorous 3.4 mg/dL (2.3-4.7); Sodium 139 mEq/L (136-145); eGFR For African Americans > 60 (> 60); eGFR For Non-African Americans > 60 (> 60)
[2016-07-07] MEDS: *HR* Enoxaparin 40 MG/0.4 ML SYRINGE SQ SCH (05:06)
[2016-07-07] MEDS: Pantoprazole 40 MG VIAL IVP SCH (08:18)
[2016-07-07] MEDS ORDERED: Magnesium Sulfate 1 GM in D5% in Water 100 ML IVPB ONE (09:10)
--- NOTE | 2016-07-07 11:13 | General Surgery Progress Note ---
Date of Encounter: 07/07/16 Time of Encounter: 11:12 - Assessment and Plan (1) Mass of cecum Current Visit: Yes Status: Acute Plan for ambulation today and will add full liquids. Subjective Patient reports: no new complaints, still having pain, no flatus Objective Vital Signs - Last 8 Hours Temp Pulse Resp BP Pulse Ox 07/07/16 07:47 98.3 F 99 16 106/69 94 07/07/16 05:14 98.3 F 99 18 109/63 96 Intake and Output 07/06/16 07/07/16 07/07/16 23:59 07:59 15:59 Intake Total 1000 / 1000 0 / 0 Output Total 50 / 50 200 / 200 Balance 950 / 950 -200 / -200 Intake: IV Fluids 1000 / 1000 D5% And 0.45% Nacl 1000 1000 / 1000 Ml Bag 1,000 ML @ 75 mls/ hr IVC .[id number] NINA Rx#: [id number] Oral 0 / 0 Output: Urine 200 / 200 Estimated Blood Loss 50 / 50 Other: Meal NPO NPO breakfast Weight 65.19 kg Blood Glucose* 123 Patient Weight 07/07/16 23:59 Weight 65.19 kg - General physical appearance well developed, no distress - Eyes PERRL - Abdomen Abdomen: Present: soft, tender Abdominal Tenderness: RUQ, RLQ - Incision Incision: Present: clean and dry - Labs 07/07/16 04:24 07/07/16 04:24 Diabetes panel 07/07/16 Range/Units 04:24 Sodium 139 (136-145) mEq/L Potassium 4.0 (3.5-4.5) mEq/L Chloride 108 (98-109) mEq/L Carbon Dioxide 26 (19-29) mEq/L BUN 10 (7-20) mg/dL Creatinine 0.64 (0.57-1.11) mg/dL Glucose 127 H (70-99) mg/dL Calcium 8.9 (8.6-10.8) mg/dL Calcium panel 07/07/16 Range/Units 04:24 Calcium 8.9 (8.6-10.8) mg/dL Phosphorus 3.4 (2.3-4.7) mg/dL Pituitary panel 07/07/16 Range/Units 04:24 Sodium 139 (136-145) mEq/L Potassium 4.0 (3.5-4.5) mEq/L Chloride 108 (98-109) mEq/L Carbon Dioxide 26 (19-29) mEq/L BUN 10 (7-20) mg/dL Creatinine 0.64 (0.57-1.11) mg/dL Glucose 127 H (70-99) mg/dL Calcium 8.9 (8.6-10.8) mg/dL Adrenal panel 07/07/16 Range/Units 04:24 Sodium 139 (136-145) mEq/L Potassium 4.0 (3.5-4.5) mEq/L Chloride 108 (98-109) mEq/L Carbon Dioxide 26 (19-29) mEq/L BUN 10 (7-20) mg/dL Creatinine 0.64 (0.57-1.11) mg/dL Glucose 127 H (70-99) mg/dL Calcium 8.9 (8.6-10.8) mg/dL Consult Discharge Plan - Plan Referrals: Ruth Kc MD [Primary Care Provider] -
[2016-07-07] MEDS: Ketorolac 15 MG/ML VIAL IVP SCH ×3 (11:19→23:28)
--- NOTE | 2016-07-07 14:27 | Internal Med Progress Note ---
Date of Encounter: 07/07/16 Time of Encounter: 09:45 - Assessment and plan (1) SBO (small bowel obstruction) Current Visit: Yes Status: Acute Assessment and plan: Patient reports 2-3 day history of worsening abdominal pain with associated nausea and vomiting. CT of the abdomen and pelvis revealed the study small bowel obstruction. There is a 5.1 cm cecal mass like density at the ileocecal valve, suspicious for colonic neoplasm. 07/06: robotic assisted right hemicolectomy Appreciate surgery input. Supportive management with IV fluids, NPO, NG to LIWS and pain medications. Increase IV Dilaudid to 1 mg q 2hr for better pain control. (2) Mass of cecum Current Visit: Yes Status: Acute Assessment and plan: Plan as above. Pathology of right colon is pending. (3) COPD (chronic obstructive pulmonary disease) Current Visit: Yes Status: Chronic Assessment and plan: stable. nebs prn Qualifiers: COPD type: chronic bronchitis Chronic bronchitis type: simple Qualified Code(s): J41.0 - Simple chronic bronchitis - Subjective Interval history: Patient complains of moderate abdominal pain that is not controlled with pain meds. - Constitutional Vitals: Temp Pulse Resp BP Pulse Ox 98.5 F 98 15 115/73 98 07/07/16 12:06 07/07/16 12:06 07/07/16 12:06 07/07/16 12:06 07/07/16 12:06 General appearance: Present: cooperative, mild distress, A&O X 3, pleasant, answers questions appropriately - ENT Additional comments: NG tube to LIWS - Respiratory Respiratory exam: Present: CTAB - Cardiovascular Cardiovascular exam: Present: tachycardia - GI/Abdominal GI/Abdominal exam: Present: distended, normal bowel sounds, soft, tenderness ( mild diffuse tenderness) - Extremities Exam Extremities exam: Absent: pedal edema - Back Exam Back exam: Absent: CVA tenderness (L), CVA tenderness (R) - Neurological Exam Neurological exam: Present: alert, oriented X3, no focal deficits, strengths equal and symetr throughout. Absent: facial droop, speech deficit - Skin Skin exam: Absent: rash Internal Medicine: Result - Labs CBC & Chem 7: 07/07/16 04:24 07/07/16 04:24 Labs: Short CBC 07/07/16 Range/Units 04:24 WBC 9.7 D (4.3-11.1) K/mcL Hgb 10.7 L D (11.5-15.4) g/dL Hct 32.9 L (35.3-44.9) % Plt Count 273 (140-400) K/mcL Neutrophils # 7.6 (1.6-8.9) K/mcL BMP 07/07/16 04:24 Sodium 139 Potassium 4.0 Chloride 108 Carbon Dioxide 26 BUN 10 Creatinine 0.64 Glucose 127 H Calcium 8.9 - ABG Interpretation ABG results: PT/INR, D-dimer PT 11.3 Seconds (9.4-12.1) 07/05/16 04:06 Consult Discharge Plan - Plan Referrals: Ruth Kc MD [Primary Care Provider] -
[2016-07-08 03:42] LABS: Basophils % 0.4 %; Eosinophils # 0.2 K/mcL (0.0-0.6); Eosinophils % 4.7 %; Hematocrit 30.3 % (35.3-44.9); Hemoglobin 9.8 g/dL (11.5-15.4); Immature Granulocytes % 0.4 % (0-4); Lymphocytes # 1.5 K/mcL (0.6-4.6); Lymphocytes % 28.3 %; Mean Corpuscular HGB Conc 32.3 g/dL (31.6-35.5); Mean Corpuscular Hemoglobin 31.4 pg (28.0-33.3); Mean Corpuscular Volume 97.1 fL (83.0-100.0); Mean Platelet Volume 10.4 fL (9.4-12.4); Monocytes # 0.6 K/mcL (0.0-1.3); Monocytes % 10.7 %; Neutrophils # 2.9 K/mcL (1.6-8.9); Platelet Count 250 K/mcL (140-400); Red Blood Count 3.12 M/mcL (3.82-4.97); Red Cell Distribution Width 15.1 % (11.5-14.5); Segmented Neutrophils % 55.5 %
[2016-07-08] MEDS: *HR* HYDROmorphone (PF) 1 MG/ML SYRINGE IVP PRN ×2 (04:13→08:55)
[2016-07-08] MEDS: Ketorolac 15 MG/ML VIAL IVP SCH ×4 (05:46→23:34)
[2016-07-08] MEDS: *HR* Enoxaparin 40 MG/0.4 ML SYRINGE SQ SCH (05:48)
[2016-07-08] MEDS: Ipratropium/Albuterol Neb 3 ML IH PRN (05:57)
[2016-07-08] MEDS: Pantoprazole 40 MG VIAL IVP SCH (08:55)
[2016-07-08] MEDS ORDERED: *HR* HYDROmorphone (PF) 1 MG/ML SYRINGE IVP PRN (10:01)
[2016-07-08] MEDS ORDERED: *HR* OxyCODONE Immed Rel 5 MG TABLET PO PRN (10:01)
--- NOTE | 2016-07-08 10:02 | Internal Med Progress Note ---
Date of Encounter: 07/08/16 Time of Encounter: 09:00 - Assessment and plan (1) SBO (small bowel obstruction) Current Visit: Yes Status: Acute Assessment and plan: Patient reports 2-3 day history of worsening abdominal pain with associated nausea and vomiting. CT of the abdomen and pelvis revealed the study small bowel obstruction. There is a 5.1 cm cecal mass like density at the ileocecal valve, suspicious for colonic neoplasm. 07/06: robotic assisted right hemicolectomy Appreciate surgery input. stop IV fluids. patient tolerating well full liquid diet. change IV Dilaudid to 1 mg q 6hr. add oxycodone prn. (2) Mass of cecum Current Visit: Yes Status: Acute Assessment and plan: Plan as above. Pathology of right colon is pending. (3) COPD (chronic obstructive pulmonary disease) Current Visit: Yes Status: Chronic Assessment and plan: stable. nebs prn Qualifiers: COPD type: chronic bronchitis Chronic bronchitis type: simple Qualified Code(s): J41.0 - Simple chronic bronchitis - Subjective Interval history: Patient reports her abdominal pain is better controlled. she is eating her full liquid diet well. - Constitutional Vitals: Temp Pulse Resp BP Pulse Ox 97.5 F L 96 14 116/77 95 07/08/16 08:15 07/08/16 08:15 07/08/16 08:15 07/08/16 08:15 07/08/16 08:15 General appearance: Present: cooperative, mild distress, A&O X 3, pleasant, answers questions appropriately - Respiratory Respiratory exam: Present: CTAB - GI/Abdominal GI/Abdominal exam: Present: normal bowel sounds, soft, tenderness (mild diffuse tenderness. surgical wounds are intact). Absent: distended - Extremities Exam Extremities exam: Absent: pedal edema - Back Exam Back exam: Absent: CVA tenderness (L), CVA tenderness (R) - Neurological Exam Neurological exam: Present: alert, oriented X3, no focal deficits, strengths equal and symetr throughout. Absent: facial droop, speech deficit - Skin Skin exam: Absent: rash Internal Medicine: Result - Labs CBC & Chem 7: 07/08/16 03:04 07/07/16 04:24 Labs: Short CBC 07/08/16 Range/Units 03:04 WBC 5.1 (4.3-11.1) K/mcL Hgb 9.8 L (11.5-15.4) g/dL Hct 30.3 L (35.3-44.9) % Plt Count 250 (140-400) K/mcL Neutrophils # 2.9 (1.6-8.9) K/mcL - ABG Interpretation ABG results: PT/INR, D-dimer PT 11.3 Seconds (9.4-12.1) 07/05/16 04:06 - VTE Documentation of Mechanical Device: Intermittent pneumatic compression device Consult Discharge Plan - Plan Referrals: Ruth Kc MD [Primary Care Provider] -
--- NOTE | 2016-07-08 12:54 | General Surgery Progress Note ---
Date of Encounter: 07/08/16 Time of Encounter: 12:53 - Assessment and Plan (1) Mass of cecum Current Visit: Yes Status: Acute Plan for ambulation today and will add full liquids. If patient continues to progress, she will likely be discharged on 07/09. Subjective Patient reports: no new complaints, feels better Objective Vital Signs - Last 8 Hours Temp Pulse Resp BP Pulse Ox 07/08/16 12:38 98.0 F 86 16 103/55 99 07/08/16 08:15 97.5 F L 96 14 116/77 95 07/08/16 05:57 16 93 Intake and Output 07/07/16 07/08/16 07/08/16 23:59 07:59 15:59 Intake Total 1480 / 1480 0 / 0 600 / 600 Output Total 250 / 250 1100 / 1100 150 / 150 Balance 1230 / 1230 -1100 / -1100 450 / 450 Intake: IV Fluids 1000 / 1000 D5% And 0.45% Nacl 1000 1000 / 1000 Ml Bag 1,000 ML @ 75 mls/ hr IVC .[id number] NINA Rx#: [id number] Oral 480 / 480 0 / 0 600 / 600 Output: Urine 250 / 250 1100 / 1100 150 / 150 Other: Meal Dinner Breakfast Percent of Meal Consumed 100% 100% Weight 62.766 kg Patient Weight 07/08/16 23:59 Weight 62.766 kg - General physical appearance well developed, no distress - Abdomen Abdomen: Present: bowel sounds present, soft, tender Abdominal Tenderness: RLQ - Labs 07/08/16 03:04 07/07/16 04:24 - VTE Documentation of Mechanical Device: Intermittent pneumatic compression device Consult Discharge Plan - Plan Referrals: Ruth Kc MD [Primary Care Provider] -
[2016-07-08] MEDS: *HR* HYDROcodone/Acet 7.5/325 mg TABLET PO PRN (17:48)
[2016-07-09 04:56] LABS: Basophils % 0.2 %; Eosinophils # 0.5 K/mcL (0.0-0.6); Eosinophils % 8.2 %; Hematocrit 31.9 % (35.3-44.9); Hemoglobin 10.4 g/dL (11.5-15.4); Immature Granulocytes % 0.3 % (0-4); Lymphocytes # 1.4 K/mcL (0.6-4.6); Lymphocytes % 23.1 %; Mean Corpuscular HGB Conc 32.6 g/dL (31.6-35.5); Mean Corpuscular Hemoglobin 31.5 pg (28.0-33.3); Mean Corpuscular Volume 96.7 fL (83.0-100.0); Mean Platelet Volume 10.1 fL (9.4-12.4); Monocytes # 0.6 K/mcL (0.0-1.3); Monocytes % 9.3 %; Neutrophils # 3.5 K/mcL (1.6-8.9); Platelet Count 293 K/mcL (140-400); Segmented Neutrophils % 58.9 %
[2016-07-09] MEDS: *HR* HYDROcodone/Acet 7.5/325 mg TABLET PO PRN (05:04)
[2016-07-09] MEDS: *HR* Enoxaparin 40 MG/0.4 ML SYRINGE SQ SCH (05:05)
[2016-07-09] MEDS: Ketorolac 15 MG/ML VIAL IVP SCH ×2 (05:05→11:38)
[2016-07-09 05:12] LABS: BUN/Creatinine Ratio 9 (6-26); Blood Urea Nitrogen 6 mg/dL (7-20); Calcium 9.2 mg/dL (8.6-10.8); Carbon Dioxide 28 mEq/L (19-29); Chloride 110 mEq/L (98-109); Glucose 89 mg/dL (70-99); Magnesium 1.9 mg/dL (1.6-2.6); Osmolality,Calculated 291 (280-300); Potassium 4.1 mEq/L (3.5-4.5); Sodium 142 mEq/L (136-145); eGFR For African Americans > 60 (> 60); eGFR For Non-African Americans > 60 (> 60)
--- NOTE | 2016-07-09 09:10 | Discharge Summary ---
Date of Encounter: 07/09/16 Time of Encounter: 09:08 - Discharge Diagnosis (1) SBO (small bowel obstruction) Priority: Primary Status: Acute (2) Mass of cecum Priority: Primary Status: Acute (3) COPD (chronic obstructive pulmonary disease) Priority: Secondary Status: Chronic Qualifiers: COPD type: chronic bronchitis Chronic bronchitis type: simple Qualified Code(s): J41.0 - Simple chronic bronchitis - Discharge Medications Prescriptions: HYDROcodone/Acet 7.5/325 mg [[place] 7.5-325 mg] 1 tab PO Q6HR PRN #20 tablet PRN Reason: moderate PAIN (4-6) Docusate [Colace] 100 mg PO BID PRN #14 capsule PRN Reason: Constipation Home Medications: Albuterol Neb [Proventil Neb] 2.5 mg IH Q4HR PRN 07/05/16 [History] Budesonide/Formoterol 160/4.5 [Symbicort 160/4.5] 2 puff IH BIDR 07/05/16 [ History] Cetirizine HCl [Zyrtec] 10 mg PO DAILY 07/05/16 [History] Ipratropium/Albuterol Sulfate [Combivent Respimat Inhal [place]] 1 puff IH QID PRN 07/05/16 [History] Naproxen Sodium [Aleve] 220 mg PO BID PRN 07/05/16 [History] Tiotropium [Spiriva] 1 cap IH DAILY 07/05/16 [History] Docusate [Colace] 100 mg PO BID PRN #14 capsule 07/09/16 [Rx] HYDROcodone/Acet 7.5/325 mg [[place] 7.5-325 mg] 1 tab PO Q6HR PRN #20 tablet [Rx] Allergies/Adverse Reactions: Allergies No Known Allergies Allergy (Verified 07/04/16 21:04) Date of admission: 07/05/16 08:20 Primary care physician: Ruth Kc, Consults: 07/05/16 09:01 Consult to Surgery [CONS] Routine Consulting Provider: [facility] Reason for Consult: SBO, cecal mass. ED spoke with Dr Kandi Louie Completed: Yes - Patient Status Disposition: Home, Self-Care Condition: Good Functional capacity at discharge: independent ambulation Overall status at discharge: patient is progressing back to baseline - Discharge Instructions Follow Up With: Kwan Chau DO [Partnered Physician] - 07/24/16 10:50 am (f/u in 1 - 2 weeks ) Additional Instructions: Discharge instructions: #1 May shower, no tub bath X 2 weeks #2 Wash incisions with soap and water and pat dry daily #3 No lifting/pushing/pulling greater than 15 lb. for a total of 4 weeks from the date of surgery #4 No driving until off narcotics and able to safely react in the car #5 May climb stairs - Diet and Activity Activity: other Diet: other (soft cardiac diet) Interval History: Patient has no complaints. She is eager to go home Hospital course: Ms. Ruiz is a 61 year old female with past medical history of COPD who presented with a chief complain of worsening abdominal pain with associated nausea and vomiting. CT of the abdomen and pelvis revealed the study small bowel obstruction. There is a 5.1 cm cecal mass like density at the ileocecal valve, suspicious for colonic neoplasm. She was started on IV fluids, NPO, and pain control with opiates. She underwent robotic assisted right hemicolectomy without complications. Her postoperative course was unremarkable. PLAN: U [place]: Pending. She will follow-up in the surgery clinic in 1-2 weeks. She will follow up with primary care physician next week. - Time Spent with Patient Total time spent providing and/or coordinating discharge services: - Constitutional Vitals: Temp Pulse Resp BP Pulse Ox 98.1 F 100 18 105/67 96 07/09/16 08:44 07/09/16 08:44 07/09/16 08:44 07/09/16 08:44 07/09/16 08:44 General appearance: Present: cooperative, mild distress, A&O X 3, pleasant, answers questions appropriately - Respiratory Respiratory exam: Present: CTAB - Cardiovascular Cardiovascular exam: Present: RRR, systolic murmur - GI/Abdominal GI/Abdominal exam: Present: normal bowel sounds, soft, tenderness (Mild diffuse tenderness. Surgical wounds are intact.). Absent: distended - Extremities Exam Extremities exam: Absent: pedal edema - Back Exam Back exam: Absent: CVA tenderness (L), CVA tenderness (R) - Neurological Exam Neurological exam: Present: alert, oriented X3, no focal deficits, strengths equal and symetr throughout. Absent: facial droop, speech deficit - Skin Skin exam: Absent: rash - VTE Documentation of Mechanical Device: Intermittent pneumatic compression device
[2016-07-09] MEDS: Pantoprazole 40 MG VIAL IVP SCH (09:34)
[2016-07-09 10:44] VITALS: BP 112/70
--- NOTE | 2016-07-09 12:28 | General Surgery Progress Note ---
Date of Encounter: 07/09/16 Time of Encounter: 12:27 - Assessment and Plan (1) Mass of cecum Current Visit: Yes Status: Acute POD #3 Right colon resection Advance to soft diet saline lock May discharge to home and follow-up in 1-2 weeks See instructions for surgery restrictions (2) DVT prophylaxis Current Visit: Yes Status: Acute Continue lovenox for DVT prophylaxis Subjective Patient reports: no new complaints, feels better, still having pain, pain is less, tolerating liquids well (full liquids), voiding w/o difficulty, flatus, no bowel movement, afebrile Objective Vital Signs - Last 8 Hours Temp Pulse Resp BP Pulse Ox 07/09/16 10:41 98.0 F 93 18 112/70 96 07/09/16 08:44 98.1 F 100 18 105/67 96 Intake and Output 07/08/16 07/09/16 07/09/16 23:59 07:59 15:59 Intake Total 480 / 480 0 / 0 300 / 300 Output Total 600 / 600 100 / 100 0 / 0 Balance -120 / -120 -100 / -100 300 / 300 Intake: Oral 480 / 480 0 / 0 300 / 300 Output: Urine 600 / 600 100 / 100 0 / 0 Other: Meal Dinner Breakfast Percent of Meal Consumed 90% 100% - General physical appearance well developed, well nourished, no distress - Eyes normal ocular movement - ENT normal mucosa, atraumatic, normocephalic - Neck Neck exam: trachea midline - Respiratory normal respiratory effort, clear to auscultation - Cardiovascular Cardiovascular exam: Present: RRR - Abdomen Abdomen: Present: bowel sounds present, soft, tender (expected post-operative tenderness) - Incision Incision: Present: clean and dry, intact - Neurologic CN 2-12 grossly intact - Psychiatric oriented to time, oriented to person, oriented to place, speech is normal, memory intact - Labs 07/09/16 04:14 07/09/16 04:14 Diabetes panel 07/09/16 Range/Units 04:14 Sodium 142 (136-145) mEq/L Potassium 4.1 (3.5-4.5) mEq/L Chloride 110 H (98-109) mEq/L Carbon Dioxide 28 (19-29) mEq/L BUN 6 L (7-20) mg/dL Creatinine 0.70 (0.57-1.11) mg/dL Glucose 89 (70-99) mg/dL Calcium 9.2 (8.6-10.8) mg/dL Calcium panel 07/09/16 Range/Units 04:14 Calcium 9.2 (8.6-10.8) mg/dL Pituitary panel 07/09/16 Range/Units 04:14 Sodium 142 (136-145) mEq/L Potassium 4.1 (3.5-4.5) mEq/L Chloride 110 H (98-109) mEq/L Carbon Dioxide 28 (19-29) mEq/L BUN 6 L (7-20) mg/dL Creatinine 0.70 (0.57-1.11) mg/dL Glucose 89 (70-99) mg/dL Calcium 9.2 (8.6-10.8) mg/dL Adrenal panel 07/09/16 Range/Units 04:14 Sodium 142 (136-145) mEq/L Potassium 4.1 (3.5-4.5) mEq/L Chloride 110 H (98-109) mEq/L Carbon Dioxide 28 (19-29) mEq/L BUN 6 L (7-20) mg/dL Creatinine 0.70 (0.57-1.11) mg/dL Glucose 89 (70-99) mg/dL Calcium 9.2 (8.6-10.8) mg/dL - VTE Documentation of Mechanical Device: Intermittent pneumatic compression device Consult Discharge Plan - Plan Additional Instructions: Discharge instructions: #1 May shower, no tub bath X 2 weeks #2 Wash incisions with soap and water and pat dry daily #3 No lifting/pushing/pulling greater than 15 lb. for a total of 4 weeks from the date of surgery #4 No driving until off narcotics and able to safely react in the car #5 May climb stairs Referrals: Kwan Chau DO [Partnered Physician] - 07/24/16 10:50 am (f/u in 1 - 2 weeks ) Ruth Kc MD [Primary Care Provider] - Prescriptions: HYDROcodone/Acet 7.5/325 mg [[place] 7.5-325 mg] 1 tab PO Q6HR PRN #20 tablet PRN Reason: moderate PAIN (4-6) Docusate [Colace] 100 mg PO BID PRN #14 capsule PRN Reason: Constipation
--- NOTE | 2016-07-11 08:45 | Operative Note ---
Date of procedure: 07/06/16 Pre-op diagnosis: Small bowel obstruction Post-op diagnosis: other (Cecal mass) Procedure: Robotic right colectomy Anesthesia: BUBBA Surgeon: Kwan Chau Estimated blood loss (cc): 50 Specimen: Right colon Condition: stable Disposition: floor Procedure in Detail: After informed consent, patient was taken to the operating room placed in a supine position. After adequate sedation anesthesia the abdomen was prepped and draped. A 12 mm cannula site was created approximately 2 fingerbreadths left lateral and inferior to the umbilicus. 8 mm cannula site was created in the right lower quadrant just medial to the ASIS. An additional 8 mm cannulas placed left lateral xiphoid process, a third 8 mm cannulas placed in the left upper quadrant. Once all cannulas were in place, a pneumoperitoneum was established. A mass was easily identified in the cecum. The robot was docked over the patient's right hip. The small bowel swept out of the way. The ileocolic pedicle was easily identified. It was taken at its base with a vessel sealer. The transverse mesocolon was divided towards the transverse colon. The transverse colon was taken with a QUENTIN 60 mm echelon stapler. The same was performed for the terminal ileum. The lateral attachments were then taken down with a vessel sealer. Once the right colon was freed up, a midline incision was made. This specimen was removed through the small midline incision. The terminal ileum and the transverse colon were then anastomosed with a [id number], functional end-to-end and anastomosis utilizing a QUENTIN 75 mm stapler and a TA 60 stapler. Once completed all ports were removed and incisions were closed with 0 Vicryl suture and 4-0 Vicryl suture. Patient tolerated the procedure well.
== END 2016-07-09 13:00 | disposition home or self-care (01) | DRG 330 ==
LOC: EMEROO 20:14 → 3ANU 07-05 03:04 → INTOOBSV 07-05 03:04 → 3ANU 07-05 04:03
PROVIDERS: ADMIT Internal Medicine; ATTEND Internal Medicine